=== PATIENT | female | born 1995 ===

== ENCOUNTER → 2023-05-09 | Outpatient (CLI) | payer BC | END | disposition home or self-care (01) | LOC: XYW 14:57 | PROVIDERS: ATTEND Internal Medicine | DX: R00.0 Tachycardia, unspecified (principal) | CPT/HCPCS: 93306 ==

== ENCOUNTER → 2023-06-28 | Outpatient (CLI) | payer BC | END | disposition home or self-care (01) | LOC: LAB 16:17 | PROVIDERS: ATTEND Obstetrics & Gynecology | DX: R87.618 Other abnormal cytological findings on specimens from cervix uteri (principal) ==

== ENCOUNTER → 2025-07-19 | Outpatient (CLI) | payer BC ==
[2025-07-19 09:56] LABS: Hematocrit 41.6 % (36.0-46.0); Hemoglobin 14.2 g/dL (12.2-16.2); Mean Corpuscular Hemoglobin 31.1 pg (28.0-32.0); Mean Corpuscular Volume 90.9 fL (80.0-100.0); Nucleated Red Blood Cells % 0.0 %
[2025-07-19 10:19] LABS: Alanine Aminotransferase 14 U/L (7-40); Albumin 4.5 g/dL (3.2-4.8); Alkaline Phosphatase 59 U/L (46-116); Anion Gap 7 (5-15); BUN/Creatinine Ratio 10.1 (10.0-20.0); Bilirubin, Total 0.9 mg/dL (0.2-1.0); Blood Urea Nitrogen 9 mg/dL (9-23); Calcium 9.7 mg/dL (8.7-10.4); Carbon Dioxide 27 mmol/L (20-31); Chloride 104 mmol/L (98-107); Cholesterol 181 mg/dL (< 200); Glucose 84 mg/dL (74-106); Potassium 3.6 mmol/L (3.5-5.1); Sodium 138 mmol/L (136-145); Total Protein 8.1 g/dL (5.7-8.2); Triglycerides 58 mg/dL (< 150)
[2025-07-19 10:22] LABS: Follicle Stimulating Hormone 7.79 IU/L (SEE BELOW); Free T4 (Free Thyroxine) 1.35 ng/dL (0.89-1.76)
[2025-07-19 10:47] LABS: HDL Cholesterol 79 mg/dL (40-59)
== END | disposition home or self-care (01) ==
LOC: LAB 09:14
DX: E28.2 Polycystic ovarian syndrome (principal); Z11.2 Encounter for screening for other bacterial diseases; Z11.3 Encounter for screening for infections with a predominantly sexual mode of transmission; Z01.419 Encounter for gynecological examination (general) (routine) without abnormal findings
CPT/HCPCS: 36415; 80053; 80061; 82306; 82670; 83001; 83002; 83036; 84146; 84403; 84439; 84443; 85025; 86703; 86762; 86780; 86850; 86900; 86901; 87340